=== PATIENT | female | born 1985 | race Caucasian/White ===

== ENCOUNTER 2017-04-21 07:18 | Inpatient (IN) | payer OTHER, BC ==
[2017-04-21] MEDS ORDERED: Sodium Chloride 0.9% 10 ML Syringe FLUSH PRN (07:27)
[2017-04-21] MEDS ORDERED: Lactated Ringers 1,000 ML IV ONE (15:11)
[2017-04-21] MEDS ORDERED: fentaNYL 100 MCG/2 ML SDV ITHECAL ONE (15:15)
[2017-04-21] MEDS ORDERED: Scopolamine 1.5 MG Transdermal Patch TOP ONE (15:17)
[2017-04-21] MEDS ORDERED: ePHEDrine 50 MG/ML SDV IVPUSH ONE (15:18)
[2017-04-21] MEDS ORDERED: Scopolamine 1.5 MG Transdermal Patch ONE (15:24)
[2017-04-21] MEDS ORDERED: Naloxone 0.4 MG/ML SDV ONE (15:25)
[2017-04-21] MEDS ORDERED: ePHEDrine 50 MG/ML SDV IVPUSH PRN ×3 (15:28→17:50)
[2017-04-21] MEDS ORDERED: Oxytocin 10 Units/1 ML SDV IM ONE (16:25)
[2017-04-21] MEDS: Ibuprofen 600 MG Tab PO PRN (17:32)
[2017-04-21] MEDS ORDERED: Naloxone 0.4 MG/ML SDV IVPUSH PRN ×2 (17:45)
[2017-04-21] MEDS ORDERED: Promethazine 25 MG/ML SDV IV PRN ×2 (17:45)
[2017-04-21] MEDS ORDERED: diphenhydrAMINE 50 MG/ML SDV IVPUSH PRN (17:45)
[2017-04-21] MEDS ORDERED: Naloxone 0.4 MG in Sodium Chloride 0.9% 100 ML IV PRN (17:45)
[2017-04-21] MEDS ORDERED: Nalbuphine 10 MG/1 ML Vial IVPUSH PRN (17:45)
[2017-04-21] MEDS ORDERED: hydrOXYzine HCl 50 MG/ML SDV IM PRN ×2 (17:45→17:48)
[2017-04-21] MEDS ORDERED: Metoclopramide 10 MG/2 ML SDV IV PRN (17:49)
[2017-04-22] MEDS: Ibuprofen 600 MG Tab PO PRN ×3 (00:27→14:48)
[2017-04-22] MEDS ORDERED: Prenatal Multivitamin with Calcium/Folic Acid/Fe Fumarate Cap PO SCH (09:00)
--- NOTE | 2017-04-22 10:59 | PN ---
DATE SEEN: 04/22/2017 SUBJECTIVE: Teresa Houston is a 32-year-old 4, para 3 female; 1 day . Up, ambulating, doing well. Nursing is going well. Lochia and flow are reasonable. Pain control with analgesics, ibuprofen. Hemoglobin 12.1. PHYSICAL EXAMINATION: U-3 tone satisfactory. Perineum intact. ASSESSMENT: day 1, no problems. PLAN: Discharge likely this evening. Complementary care and well being. Proceed accordingly. /[id number] /ADILIA
--- NOTE | 2017-04-22 14:35 | DEL ---
DATE OF DELIVERY: 04/21/2017 HISTORY OF PRESENT ILLNESS: Teresa Houston is a 32-year-old, 4, para 3-0-0- 3 female from [place], [place], admitted for induction of labor. EDC, 04/23/2017. I spoke to induction risks and benefits. The patient is in agreement. It has been an uncomplicated , satisfactory maternal behaviors, satisfactory growth and development accurate dates, confirmed by examination and ultrasounds. Group B rectovaginal culture negative. PHYSICAL EXAMINATION: VITAL SIGNS: Stable. NECK: Benign. Thyroid small. CHEST: Clear in all lung roberts. HEART: Regular without ectopy or murmur. BREASTS: Symmetric. Parous without masses. ABDOMEN: Trimmed gravid uterus. PELVIC: Revealed 3 cm dilatation, 80% effaced, and -1 station. Vertex presentation. Risks and benefits discussed at length. The patient was in agreement. Amniotomy was performed with nice clear fluid. She was ambulated for a couple of hours. Contractions were moderate to mild. Early afternoon contractions became a bit more active. Intrathecal was placed when she was 4 cm, quickly went to complete, and was asked to attend delivery. On exam, she was found to be in straight OA presentation. heart tone was satisfactory. Normal decelerations. Perineum was prepped in usual fashion. Two good qualities of perineum protected delivered in CRUZITO presentation without episiotomy. No nuchal cord. Nasopharynx and mouth were suctioned, delivered without difficulty or implication. Cord was stripped, placed on mom's tummy. Mouth and oropharynx were cleansed. Under nursing supervision, child was active, appropriate, cried. Heart tones and respiratory effort were good. Cord was not clamped until pulse ceased. Cord blood was obtained. Three cord vessels identified. Spontaneous placental separation, 3 cord vessels. 10 units of intramuscular Pitocin was given per nursing staff. The perineum was inspected, was a tiny bleeder just lateral to the clitoris on the right side. Two 4-0 tiny sutures were placed for hemostasis. Blood loss, 100 mL. ASSESSMENT: 1. Term in her . 2. Induction by amniotomy. 3. Intrathecal analgesia, 6-pound 14-ounce male , score 9 and 9, small periclitoral bleeder repaired without conflict, planned nursing. PLAN: Routine course. No complicating issues expected, the patient will do well. /[id number] ROBER/ADILIA CHRISTIAN
[2017-04-22 20:15] VITALS: BP 110/71
== END 2017-04-22 19:00 | disposition home or self-care (01) | DRG 775 ==
LOC: UNDOADMOB 07:18 → FB.OB 07:18 → OBSVTOIN 07:56 → INTOOBSV 07:56 → FB.OB 07:56 → OBSVTOIN 16:19 → FB.OB 16:19 → UNDODISIN 04-22 19:00 → EDSTATUS 04-23 07:16
PROVIDERS: ADMIT Family Medicine; ATTEND Family Medicine
PROC: 10E0XZZ Delivery of Products of Conception, External Approach (ICD-10-PCS; principal; 2017-04-21)
PROC: 0UQJXZZ Repair Clitoris, External Approach (ICD-10-PCS; 2017-04-21)
PROC: 10907ZC Drainage of Amniotic Fluid, Therapeutic from Products of Conception, Via Natural or Artificial Opening (ICD-10-PCS; 2017-04-21)
DX: O71.82 Other specified trauma to perineum and vulva (principal); Z37.0 Single live birth; Z3A.39 39 weeks gestation of pregnancy
CPT/HCPCS: 36415; 59409; 85014; 85018; A9270-GY; J2590; J3010; J7050; J7120